=== PATIENT | female | born 1980 | race Two or more races ===

== ENCOUNTER 2016-11-01 19:01 | Observation (INO) | payer MEDICAID ==
[~2016-11-01] VITALS: Ht 165.1 cm; Wt 77.1 kg
[2016-11-01] MEDS ORDERED: ACETAMINOPHEN WITH CODEINE 300/30MG TABLET PO NR (20:00)
[2016-11-01 20:11] VITALS: BP 113/70
[2016-11-01] MEDS ORDERED: PREN-88 PO (22:09)
== END 2016-11-01 22:45 | disposition home or self-care (01) ==
LOC: L&D 19:01
PROVIDERS: ADMIT Specialist; ATTEND Specialist
DX: O26.892 Other specified pregnancy related conditions, second trimester (principal); R10.9 Unspecified abdominal pain; M54.9 Dorsalgia, unspecified; V89.2XXA Person injured in unspecified motor-vehicle accident, traffic, initial encounter; Z3A.25 25 weeks gestation of pregnancy
CPT/HCPCS: 76805; G0378